=== PATIENT | female | born 1935 | race Caucasian/White ===

== ENCOUNTER 2017-01-22 04:51 | Emergency (ER) | payer MEDICARE ==
[2017-01-22] MEDS ORDERED: Diazepam 5 MG TAB ONE (05:30)
--- NOTE | 2017-01-22 08:17 | RAD ---
UPRIGHT PORTABLE CHEST 1 VIEW: HISTORY: An 82-year-old female with syncope. COMPARISON: 04/24/15. FINDINGS: Heart size is within normal limits. The lungs are clear. IMPRESSION: No acute intrathoracic disease. Stable from prior study. POS: [facility]
== END 2017-01-22 05:39 | disposition home or self-care (01) ==
LOC: MADERS 04:51
DX: H81.13 Benign paroxysmal vertigo, bilateral (principal); E78.5 Hyperlipidemia, unspecified; Z79.899 Other long term (current) drug therapy
CPT/HCPCS: 71010; 93005

== ENCOUNTER 2019-05-04 21:06 | Emergency (ER) | payer MEDICARE ==
[~2019-05-04 21:06] MED LIST: Iopamidol 370 76% 125 ML VIAL FS ONE; Sodium Chloride 0.9% 100 ML BAG ONE
[2019-05-04] MEDS ORDERED: Aspirin 325 MG TAB ONE (21:32)
--- NOTE | 2019-05-04 21:45 | RAD ---
Chest one view HISTORY: Dyspnea. COMPARISON: 01/22/2017. FINDINGS: Cardiac silhouette and pulmonary vasculature are unremarkable. Mediastinum is midline. Lung s are well-inflated. No confluent airspace consolidation or evidence of pneumothorax. IMPRESSION: No active cardiopulmonary abnormalities are demonstrated.
[2019-05-04 21:53] LABS: #Basophils 0.1 thou/uL (0.0-0.2); #Eosinphils 0.1 thou/uL (0.0-0.7); #Lymphocytes 1.8 thou/uL (1.20-3.40); #Monocytes 0.9 thou/uL (0.11-0.59); #Neutrophils 7.8 thou/uL (1.40-6.50); %Basophils 0.8 % (0.0-1.0); %Eosinophils 1.1 % (0.0-10.0); %Lymphocytes 16.6 % (21.0-51.0); %Neutrophils 73.5 % (42.0-75.0); Hemoglobin 13.1 g/dL (12.0-16.0); Mean Corpuscular HGB CONC 31.6 g/dL (32.0-36.0); Mean Corpuscular Hemoglobin 29.3 pg (27.0-31.0); Mean Corpuscular Volume 92.9 fL (78.0-98.0); Mean Platelet Volume 8.1 fL (7.4-10.4); Platelet Count 265 thou/uL (130-400); Red Blood Cell (RBC) Count 4.48 mill/uL (4.20-5.40); White Blood Cell (WBC) Count 10.6 thou/uL (4.8-10.8)
[2019-05-04 22:09] LABS: ALT (SGPT) 11 U/L (8-55); AST (SGOT) 17 U/L (5-34); Albumin 4.6 g/dL (3.4-4.8); Alkaline Phosphatase 91 U/L (40-110); Anion Gap 16 mmol/L (10-20); BUN (Urea Nitrogen) 12 mg/dL (9.8-20.1); Bilirubin, Total 0.5 mg/dL (0.2-1.2); Calc. Creatinine Clearance 0 mL/min (70-130); Calcium 9.5 mg/dL (7.8-10.44); Carbon Dioxide 25 mmol/L (23-31); Chloride 105 mmol/L (98-107); Estimated GFR-MDRD 52; Globulin 2.8 g/dL (2.4-3.5); Glucose 101 mg/dL (83-110); Potassium 3.7 mmol/L (3.5-5.1); Protein, Total 7.4 g/dL (6.0-8.3); Sodium 142 mmol/L (136-145)
[2019-05-04 22:10] LABS: Prothrombin Time 12.8 SEC (12.0-14.7)
[2019-05-04 22:28] LABS: D-Dimer Test 0.63 *mcg/mL (0.27-0.43)
--- NOTE | 2019-05-04 23:08 | CT ---
CT arteriogram chest with IV contrast and 3-D imaging CT arteriogram abdomen with IV contrast and 3-D imaging HISTORY: Chest and abdomen pain with radiation to the back. FINDINGS: There is good contrast opacification pulmonary arteries and thoracic aorta with normal bran ryan great vessels at the aortic arch. Scattered calcification within the arterial structures. No intimal flap or evidence of leak. Visceral arteries of the abdomen are patent. Calcified granulomata of the lungs are consistent with healed granulomatous disease. There are promin ent degenerative changes throughout the thoracolumbar spine. At the inferior pole of the right kidney, is 0.6 cm oval calcification is present within a nondilated calyx. IMPRESSION: No acute vascular abnormalities are demonstrated. Atherosclerosis. Nonobstructing 6 mm right renal calculus.
== END 2019-05-04 23:25 | disposition home or self-care (01) ==
LOC: MADERS 21:06
DX: M54.6 Pain in thoracic spine (principal); R06.00 Dyspnea, unspecified; R10.13 Epigastric pain; E78.5 Hyperlipidemia, unspecified; E78.00 Pure hypercholesterolemia, unspecified; Z79.899 Other long term (current) drug therapy
CPT/HCPCS: 71045; 71275; 72191; 74175; 80053; 83880; 84484; 85025; 85379; 85610; 93005; J3490; Q9967

== ENCOUNTER 2021-12-16 10:32 | Emergency (ER) | payer MEDICARE ==
[2021-12-16] MEDS ORDERED: Ibuprofen 600 MG TAB ONE (11:02)
[2021-12-16] MEDS ORDERED: Dexamethasone 4 MG TAB ONE (11:02)
[2021-12-16] MEDS ORDERED: Lidocaine 5% Patch TD SCH (11:15)
[2021-12-16] MEDS ORDERED: LIDOCAINE Patch Removal TOP SCH (23:00)
== END 2021-12-16 12:00 | disposition home or self-care (01) ==
LOC: MADERS 10:32
DX: S29.012A Strain of muscle and tendon of back wall of thorax, initial encounter (principal); E78.5 Hyperlipidemia, unspecified; X50.9XXA Other and unspecified overexertion or strenuous movements or postures, initial encounter
CPT/HCPCS: 99283; J8540

== ENCOUNTER 2022-03-17 11:07 | Emergency (ER) | payer MEDICARE ==
[2022-03-17] MEDS ORDERED: Dexamethasone 10 MG/ML VIAL ONE (12:02)
== END 2022-03-17 13:04 | disposition home or self-care (01) ==
LOC: MADERS 11:07
DX: U07.1 COVID-19 (principal); J06.9 Acute upper respiratory infection, unspecified; E78.5 Hyperlipidemia, unspecified; E78.00 Pure hypercholesterolemia, unspecified; Z79.899 Other long term (current) drug therapy
CPT/HCPCS: 71045; 87804; 96372; J1100; J7620; U0003; U0005

== ENCOUNTER 2022-05-22 08:07 | Emergency (ER) | payer MEDICARE ==
[2022-05-22] MEDS ORDERED: Acetaminophen 500 MG TAB ONE (08:27)
[2022-05-22] MEDS ORDERED: Ketorolac Tromethamine 30 MG/ML VIAL ONE (09:08)
[2022-05-22] MEDS ORDERED: Magnesium 2 GM/50 ML BAG (IN WATER) ONE (09:08)
[2022-05-22] MEDS ORDERED: diphenhydrAMINE 50 MG/ML VIAL ONE (09:08)
[2022-05-22] MEDS ORDERED: Metoclopramide HCl 10 MG/2 ML VIAL ONE (09:08)
[2022-05-22] MEDS ORDERED: SUMAtriptan Succinate 6 MG/0.5 ML VIAL ONE (09:08)
[2022-05-22] MEDS ORDERED: Dexamethasone 4 mg/ml Vial ONE (09:44)
== END 2022-05-22 10:15 | disposition home or self-care (01) ==
LOC: MADERS 08:07
DX: G43.909 Migraine, unspecified, not intractable, without status migrainosus (principal); E78.00 Pure hypercholesterolemia, unspecified; Z79.899 Other long term (current) drug therapy
CPT/HCPCS: 70450; 96365; 96375; J1100; J1200; J1885; J2765; J3030; J3475

== ENCOUNTER 2022-10-07 11:01 | Emergency (ER) | payer MEDICARE ==
[2022-10-07] MEDS ORDERED: Ibuprofen 200 MG TAB ONE (11:41)
[2022-10-07] MEDS ORDERED: Ibuprofen 200 MG/10 ML ORAL.SUSP ONE (11:41)
== END 2022-10-07 13:18 | disposition home or self-care (01) ==
LOC: MADERS 11:01
DX: M54.50 Low back pain, unspecified (principal); N30.00 Acute cystitis without hematuria; E78.00 Pure hypercholesterolemia, unspecified; Z79.899 Other long term (current) drug therapy
CPT/HCPCS: 72100; 72220

== ENCOUNTER 2023-01-30 08:45 | Emergency (ER) | payer MEDICARE | END 2023-01-30 09:45 | disposition home or self-care (01) | LOC: MADERS 08:45 | DX: J06.9 Acute upper respiratory infection, unspecified (principal); E78.5 Hyperlipidemia, unspecified; Z20.822 Contact with and (suspected) exposure to COVID-19; Z79.899 Other long term (current) drug therapy | CPT/HCPCS: 71046; 87635; 87804 ==

== ENCOUNTER 2023-08-02 06:06 | Emergency (ER) | payer MEDICARE ==
[2023-08-02] MEDS ORDERED: Ondansetron ODT 4 MG TAB ONE (07:04)
[2023-08-02] MEDS ORDERED: Cyclobenzaprine 10 MG TAB ONE (07:04)
[2023-08-02] MEDS ORDERED: Morphine 4 MG/ML VIAL ONE (07:04)
== END 2023-08-02 07:30 | disposition home or self-care (01) ==
LOC: MADERS 06:06
DX: S33.5XXA Sprain of ligaments of lumbar spine, initial encounter (principal); X50.3XXA Overexertion from repetitive movements, initial encounter
CPT/HCPCS: 96372; 99283; J2270; Q0162

== ENCOUNTER 2023-08-03 12:00 | Emergency (ER) | payer MEDICARE | END 2023-08-03 14:25 | disposition home or self-care (01) | LOC: MADERS 12:00 | DX: M62.838 Other muscle spasm (principal) | CPT/HCPCS: 99283 ==

== ENCOUNTER 2023-08-14 16:04 | Observation (INO) | payer MEDICARE, OTHER ==
[2023-08-14 17:38] LABS: Bilirubin Negative (Negative); Blood, Urine Negative (Negative); Glucose, Urine (Dipstick) Negative (Negative); Ketone, Urine Negative (Negative); Leukocyte Trace (Negative); Nitrite Negative (Negative); Protein, Urine (Dipstick) Negative (Neg-Trace); Specific Gravity, Urine 1.015 (1.005-1.030)
[2023-08-14 17:39] LABS: Clarity Hazy (Clear)
[2023-08-14 17:48] LABS: Bacteria/HPF Rare-Few HPF (None Seen); CAUTI Indications for Culture Pelvic or flank pain; RBC/HPF 0-3 HPF (0-3); Squamous Epithelial 0-3 HPF (0-3); Urine Culture Reflex No No
[2023-08-14 18:33] LABS: #Basophils 0.1 thou/uL (0.0-0.2); #Eosinphils 0.1 thou/uL (0.0-0.7); #Lymphocytes 1.3 thou/uL (1.20-3.40); #Monocytes 0.9 thou/uL (0.11-0.59); #Neutrophils 9.1 thou/uL (1.40-6.50); %Basophils 0.6 % (0.0-1.0); %Eosinophils 1.2 % (0.0-10.0); %Lymphocytes 11.4 % (21.0-51.0); %Monocytes 7.8 % (0.0-10.0); %Neutrophils 79.1 % (42.0-75.0); Hematocrit 39.1 % (36.0-47.0); Hemoglobin 11.8 g/dL (12.0-16.0); Mean Corpuscular HGB CONC 30.1 g/dL (32.0-36.0); Mean Corpuscular Hemoglobin 27.8 pg (27.0-31.0); Mean Corpuscular Volume 92.5 fl (78.0-98.0); Platelet Count 344 10x3/uL (130-400); RBC Distribution Width 13.5 % (11.5-14.5); Red Blood Cell (RBC) Count 4.23 mill/uL (4.20-5.40); White Blood Cell (WBC) Count 11.5 10x3/uL (4.8-10.8)
[2023-08-14 18:44] LABS: ALT (SGPT) Less than 7 U/L (8-55); AST (SGOT) 10 U/L (5-34); Albumin 3.8 g/dL (3.4-4.8); Alkaline Phosphatase 74 U/L (40-110); Anion Gap 15 mmol/L (10-20); BUN (Urea Nitrogen) 16 mg/dL (9.8-20.1); Bilirubin, Total 0.4 mg/dL (0.2-1.2); Calc. Creatinine Clearance 0 mL/min (70-130); Calcium 9.4 mg/dL (7.8-10.44); Carbon Dioxide 21 mmol/L (23-31); Chloride 107 mmol/L (98-107); Estimated GFR 64; Globulin 2.5 g/dL (2.4-3.5); Glucose 104 mg/dL (83-110); Potassium 4.4 mmol/L (3.5-5.1); Protein, Total 6.3 g/dL (5.8-8.1); Sodium 139 mmol/L (136-145)
[2023-08-14 18:45] VITALS: BMI 22.8
[2023-08-14] MEDS: Morphine 4 MG/ML VIAL ONE (19:24)
[2023-08-15] MEDS: Morphine 2 MG/ML VIAL SLOW IVP PRN (00:41)
[2023-08-15] MEDS ORDERED: Methocarbamol 500 MG TAB PO PRN (05:37)
[2023-08-15] MEDS ORDERED: Polyethylene Glycol 3350 17 GM Packet PO PRN ×2 (07:22→17:50)
[2023-08-15] MEDS ORDERED: Morphine 2 MG/ML VIAL SLOW IVP PRN (07:22)
[2023-08-15] MEDS: Mirabegron ER 25 MG ER.TAB PO SCH (08:28)
[2023-08-15] MEDS: Rosuvastatin 10 MG TAB PO SCH (08:29)
[2023-08-15] MEDS: Enoxaparin 40 MG (0.4 mL) SYRINGE SC SCH (08:29)
[2023-08-15] MEDS: Donepezil HCl 10 MG TAB PO SCH (08:29)
[2023-08-15] MEDS: Cyanocobalamin (Vitamin B-12) 1,000 MCG TAB PO SCH (08:29)
[2023-08-15] MEDS: Ondansetron ODT 4 MG TAB PO PRN (08:29)
[2023-08-15] MEDS: Calcium Carbonate 600 MG + Vit D TAB PO SCH (08:29)
[2023-08-15] MEDS: Cephalexin 500 MG CAP PO SCH (08:30)
[2023-08-15 11:32] VITALS: BMI 22.8
[2023-08-15 16:13] VITALS: BP 147/69; TEMP 98.5
[2023-08-15] MEDS ORDERED: Ondansetron ODT 4 MG TAB SL PRN (17:50)
[2023-08-15] MEDS ORDERED: [UNRECOGNIZED DRUG - OTHER] EA EYE PRN (17:50)
[2023-08-15] MEDS ORDERED: POLY80 EA EYE PRN (17:50)
[2023-08-15] MEDS ORDERED: GLY EA EYE PRN (17:50)
[2023-08-15] MEDS ORDERED: CARBOXYMETHYL EA EYE PRN (17:50)
[2023-08-15] MEDS ORDERED: HYDROcodone/Acetaminophen 10/325 mg Tablet PO PRN (17:52)
[2023-08-15] MEDS ORDERED: Cephalexin 500 MG CAP PO SCH (18:00)
[2023-08-15] MEDS ORDERED: Diclofenac 1% 100 GM Topical GEL TP SCH (21:00)
[2023-08-16] MEDS ORDERED: Enoxaparin 40 MG (0.4 mL) SYRINGE SC SCH (09:00)
== END 2023-08-15 17:15 | disposition swing bed (61) ==
LOC: MADERS 16:04 → MADMS 18:17 → INTOOBSV 18:17
PROVIDERS: ADMIT Family Medicine; ATTEND Family Medicine
DX: M54.9 Dorsalgia, unspecified (principal); R29.6 Repeated falls; N32.81 Overactive bladder; E78.5 Hyperlipidemia, unspecified; R53.81 Other malaise; N39.0 Urinary tract infection, site not specified; R41.3 Other amnesia; Z98.49 Cataract extraction status, unspecified eye; Z90.49 Acquired absence of other specified parts of digestive tract; Z79.899 Other long term (current) drug therapy
CPT/HCPCS: 36415; 72192; 80053; 81001; 85025; 87086; 96372; 96376; G0378; J1650; J2270; J2272; Q0162

== ENCOUNTER 2023-08-15 16:25 | Inpatient (IN) | payer MEDICARE, OTHER ==
[2023-08-15 17:24] VITALS: BMI 22.8
[2023-08-15] MEDS ORDERED: Ondansetron ODT 4 MG TAB SL PRN (17:56)
[2023-08-15] MEDS ORDERED: Polyethylene Glycol 3350 17 GM Packet PO PRN (17:56)
[2023-08-15] MEDS ORDERED: Cephalexin 500 MG CAP PO SCH (18:00)
[2023-08-15] MEDS ORDERED: Artificial Tear Sol 15 ML BOT EA EYE PRN (18:02)
[2023-08-15] MEDS: Cephalexin 500 MG CAP PO SCH (20:59)
[2023-08-15] MEDS: Diclofenac 1% 100 GM Topical GEL TP SCH (21:00)
[2023-08-15] MEDS: HYDROcodone/Acetaminophen 10/325 mg Tablet PO PRN (21:48)
[2023-08-16] MEDS ORDERED: Enoxaparin 40 MG (0.4 mL) SYRINGE SC SCH (09:00)
[2023-08-16] MEDS: Donepezil HCl 10 MG TAB PO SCH (09:16)
[2023-08-16] MEDS: Calcium Carbonate 600 MG + Vit D TAB PO SCH (09:17)
[2023-08-16] MEDS: Rosuvastatin 10 MG TAB PO SCH (09:17)
[2023-08-16] MEDS: Cyanocobalamin (Vitamin B-12) 1,000 MCG TAB PO SCH (09:17)
[2023-08-16] MEDS: Enoxaparin 40 MG (0.4 mL) SYRINGE SC SCH (09:17)
[2023-08-16] MEDS: Mirabegron ER 25 MG ER.TAB PO SCH (09:17)
[2023-08-16] MEDS: Ondansetron ODT 4 MG TAB PO PRN (12:23)
[2023-08-16] MEDS: Polyethylene Glycol 3350 17 GM Packet PO PRN (12:24)
[2023-08-16] MEDS: Methocarbamol 500 MG TAB PO PRN (21:44)
[2023-08-17] MEDS ORDERED: Lactulose 20 GM (30 mL) UDCUP PO PRN (12:02)
[2023-08-18] MEDS: Preparation H Ointment 28 GM TUBE TOP SCH (17:11)
[2023-08-18] MEDS: Megestrol Acetate 40 MG TAB PO SCH (20:21)
[2023-08-19] MEDS ORDERED: Proctozone-HC 30 GM TUBE TOP SCH (09:00)
[2023-08-19] MEDS: Acetaminophen 325 MG TAB PO PRN (13:50)
[2023-08-21] MEDS: Preparation H Ointment 57 gram tube TOP SCH (16:46)
[2023-08-23 05:12] LABS: Hemoglobin 12.7 g/dL (12.0-16.0); Platelet Count 314 10x3/uL (130-400)
[2023-08-25 07:08] VITALS: BP 146/54; TEMP 98.9
[2023-08-25 11:10] VITALS: BMI 22.0
== END 2023-08-25 15:45 | disposition home or self-care (01) | DRG 948 ==
LOC: MADMS 17:15
PROVIDERS: ADMIT Family Medicine; ATTEND Family Medicine
DX: R53.81 Other malaise (principal); N39.0 Urinary tract infection, site not specified; K59.00 Constipation, unspecified; E78.5 Hyperlipidemia, unspecified; N32.81 Overactive bladder; K64.9 Unspecified hemorrhoids; Z79.899 Other long term (current) drug therapy; Z90.710 Acquired absence of both cervix and uterus; Z90.49 Acquired absence of other specified parts of digestive tract; M54.50 Low back pain, unspecified; M54.9 Dorsalgia, unspecified; R29.6 Repeated falls; R41.3 Other amnesia; Z98.49 Cataract extraction status, unspecified eye
CPT/HCPCS: 36415; 72192; 80053; 81001; 82565; 85014; 85018; 85025; 85049; 87086; 96372; 96376; G0378; J1650; J2270; J2272; Q0162; S0179

== ENCOUNTER 2024-12-01 11:31 | Inpatient (IN) | payer MEDICARE ==
[2024-12-01] MEDS ORDERED: Calcium Carbonate 500 MG ChewTAB PO PRN (16:05)
[2024-12-01] MEDS: Acetaminophen 325 MG TAB PO SCH (17:23)
[2024-12-01] MEDS: Methocarbamol 500 MG TAB PO SCH (17:24)
[2024-12-01] MEDS: Senokot S 8.6-50 MG TAB PO SCH (20:31)
[2024-12-02 05:24] LABS: #Basophils 0.1 thou/uL (0.0-0.2); #Eosinophils 0.2 thou/uL (0.0-0.7); #Lymphocytes 1.2 thou/uL (1.20-3.40); #Monocytes 0.6 thou/uL (0.11-0.59); #Neutrophils 5.7 thou/uL (1.40-6.50); %Basophils 1.3 % (0.0-1.0); %Eosinophils 2.3 % (0.0-10.0); %Lymphocytes 15.7 % (21.0-51.0); %Monocytes 7.9 % (0.0-10.0); %Neutrophils 72.8 % (42.0-75.0); Hematocrit 29.2 % (36.0-47.0); Hemoglobin 9.4 g/dL (12.0-16.0); Mean Corpuscular Hemoglobin 29.5 pg (27.0-31.0); Mean Corpuscular Volume 91.5 fl (78.0-98.0); Platelet Count 257 10x3/uL (130-400); Red Blood Cell (RBC) Count 3.19 mill/uL (4.20-5.40); White Blood Cell (WBC) Count 7.8 10x3/uL (4.8-10.8)
[2024-12-02 05:39] LABS: ALT (SGPT) Less than 7 U/L (Less than 34); AST (SGOT) 14 U/L (11-34); Albumin 3.0 g/dL (3.1-4.5); Alkaline Phosphatase 63 U/L (40-110); Anion Gap 16 mmol/L (10-20); BUN (Urea Nitrogen) 11 mg/dL (9.8-20.1); Bilirubin, Total 0.8 mg/dL (0.3-1.2); Calc. Creatinine Clearance 52 mL/min (70-130); Calcium 8.8 mg/dL (7.8-10.44); Carbon Dioxide 21 mmol/L (23-31); Chloride 107 mmol/L (98-107); Globulin 2.5 g/dL (2.4-3.5); Glucose 85 mg/dL (83-110); Potassium 3.7 mmol/L (3.5-5.1); Sodium 140 mmol/L (136-145)
[2024-12-02] MEDS: Cholecalciferol 1,000 UNITS (25 MCG) TAB PO SCH (08:09)
[2024-12-02] MEDS: Rosuvastatin 10 MG TAB PO SCH (08:09)
[2024-12-02] MEDS: Enoxaparin 40 MG (0.4 mL) SYRINGE SC SCH (08:09)
[2024-12-02 20:01] VITALS: BMI 22.6
[2024-12-02] MEDS: Methocarbamol 500 MG TAB PO PRN (21:25)
[2024-12-05 08:25] VITALS: BMI 22.7
[2024-12-05] MEDS: Megestrol Acetate 400 MG/10 ML UDCUP PO SCH (08:51)
[2024-12-13 11:17] VITALS: BP 118/72; TEMP 97.9
== END 2024-12-13 11:50 | disposition home health service (06) | DRG 946 ==
LOC: MADMS 14:13
PROVIDERS: ADMIT Family Medicine; ATTEND Family Medicine
PROC: F07Z5ZZ Bed Mobility Treatment (ICD-10-PCS; principal; 2024-12-02)
PROC: F08Z0ZZ Bathing/Showering Techniques Treatment (ICD-10-PCS; 2024-12-02)
DX: R53.81 Other malaise (principal); S72.92XG Unspecified fracture of left femur, subsequent encounter for closed fracture with delayed healing; E78.5 Hyperlipidemia, unspecified; Z98.890 Other specified postprocedural states; Z79.899 Other long term (current) drug therapy; N32.81 Overactive bladder; R26.89 Other abnormalities of gait and mobility; R41.3 Other amnesia
CPT/HCPCS: 36415; 80053; 85025; J1650; Q0162